=== PATIENT | female | born 1965 | race Caucasian/White ===

== ENCOUNTER 2023-02-02 17:14 | Emergency (ER) | payer OTHER ==
[2023-02-02 17:43] LABS: BASOPHILS % (AUTO) 0.5 %; EOSINOPHILS # (AUTO) 0.1 10^3/uL (0.0-0.7); EOSINOPHILS % (AUTO) 1.3 %; HCT - HEMATOCRIT 41.1 % (37.0-47.0); HGB - HEMOGLOBIN 13.1 g/dL (12.0-16.0); LYMPHOCYTES # (AUTO) 2.4 10^3/uL (1.5-3.5); LYMPHOCYTES % (AUTO) 31.5 %; MEAN CORPUSCULAR HGB CONC 31.9 g/dL (32.0-36.0); MEAN CORPUSCULAR VOLUME 90.9 fL (81.0-99.0); MEAN PLATELET VOLUME 9.5 fL (7.9-10.8); MONOCYTES # (AUTO) 0.4 10^3/uL (0.0-1.0); NEUTROPHILS # (AUTO) 4.6 10^3/uL (1.5-6.6); NEUTROPHILS % (AUTO) 61.6 %; PLT - PLATELET COUNT 250 10^3/uL (130-450); RED BLOOD COUNT 4.52 10^6/uL (4.20-5.40); RED CELL DISTRIBUTION WIDTH 12.8 % (12.0-15.0); WHITE BLOOD COUNT 7.6 x10^3/uL (4.8-10.8)
[2023-02-02 17:48] LABS: BILIRUBIN,URINE NEGATIVE (NEGATIVE); GLUCOSE, URINE (UA) NEGATIVE (NEGATIVE); KETONES,URINE (UA) NEGATIVE (NEGATIVE); LEUKOCYTE ESTERASE, URINE NEGATIVE (NEGATIVE); NITRITE,URINE NEGATIVE (NEGATIVE); OCCULT BLOOD,URINE NEGATIVE (NEGATIVE); PROTEIN,URINE NEGATIVE (NEGATIVE); UROBILINOGEN,URINE 0.2 (NORMAL) E.U./dL (NORMAL)
[2023-02-02 17:50] LABS: CLARITY,URINE CLEAR (CLEAR)
[2023-02-02 17:54] LABS: ALBUMIN 4.1 g/dL (3.2-5.5); ALBUMIN/GLOBULIN RATIO 1.1 (1.0-2.2); BILIRUBIN,TOTAL 0.4 mg/dL (0.2-1.0); CALCIUM 9.5 mg/dL (8.5-10.3); CREATININE 0.7 mg/dL (0.4-1.0); POTASSIUM 3.5 mmol/L (3.5-5.0); TOTAL PROTEIN 7.8 g/dL (6.7-8.2)
[2023-02-02] MEDS ORDERED: ONDANSETRON ODT 4 MG TABLET TL STA (18:04)
[2023-02-02] MEDS ORDERED: HYDROmorphone 1 MG/ML CARPUJECT IM STA (18:04)
--- NOTE | 2023-02-02 18:05 | ED Physician Documentation ---
PD HPI ABD PAIN - Stated complaint Stated Complaint: ABD PX - Chief complaint Chief Complaint: Abd Pain - History obtained from History obtained from: Patient - Additional information Additional information: 57-year-old woman with a remote history of appendicitis but no other abdominal surgeries presents with episodic right upper quadrant pain. She had it several times in November, seem to be after eating certain foods. During December she really did not have any pain but now she has had the pain since eating something spicy last night for about 24 hours. She tried Pepcid which was unhelpful. She is nauseous with it. No changes in bowel movements. No fevers. PD PAST MEDICAL HISTORY - Present Medications Home Medications: Ambulatory Orders Medication Instructions Recorded Confirmed Estrogens, Conjugated Cream 02/02/23 [Premarin Cream] Omeprazole 40 mg PO DAILY #30 cap 02/02/23 - Allergies Allergies/Adverse Reactions: Allergies Allergy/AdvReac Type Severity Reaction Status Date / Time No Known Drug Allergies Allergy Verified 02/02/23 17:25 PD ED PE NORMAL - Vitals Vital signs reviewed: Yes - General General: Alert and oriented X 3, No acute distress - Cardiac Cardiac: RRR, No murmur - Respiratory Respiratory: No respiratory distress, Clear bilaterally - Abdomen Abdomen: Normal bowel sounds, Soft, Other (She is focally tender in the right upper quadrant with positive Bee sign.) - Back Back: No CVA TTP, No spinal TTP - Derm Derm: Normal color, Warm and dry - Neuro Neuro: Alert and oriented X 3, Normal speech Results - Vitals Vitals: Vital Signs - 24 hr 02/02/23 17:22 Temperature 36.0 C L Heart Rate 88 Respiratory 16 Rate Blood Pressure 122/94 H O2 Saturation 100 Oxygen O2 Source Room air - Labs Labs: Laboratory Tests 02/02/23 02/02/23 02/02/23 17:35 17:37 17:37 WBC 7.6 RBC 4.52 Hgb 13.1 Hct 41.1 MCV 90.9 MCH 29.0 MCHC 31.9 L RDW 12.8 Plt Count 250 MPV 9.5 Neut # (Auto) 4.6 Lymph # (Auto) 2.4 Morrison # (Auto) 0.4 Eos # (Auto) 0.1 Baso # (Auto) 0.0 Absolute Nucleated RBC 0.00 Nucleated RBC % 0.0 Sodium 142 Potassium 3.5 Chloride 106 Carbon Dioxide 28 Anion Gap 8.0 BUN 14 Creatinine 0.7 Estimated GFR (MDRD) 87 L Glucose 123 H Calcium 9.5 Total Bilirubin 0.4 AST 22 ALT 21 Alkaline Phosphatase 70 Total Protein 7.8 Albumin 4.1 Globulin 3.7 Albumin/Globulin Ratio 1.1 Lipase 34 Urine Color YELLOW Urine Clarity CLEAR Urine pH 7.0 Ur Specific Blue 1.010 Urine Protein NEGATIVE Urine Glucose (UA) NEGATIVE Urine Ketones NEGATIVE Urine Occult Blood NEGATIVE Urine Nitrite NEGATIVE Urine Bilirubin NEGATIVE Urine Urobilinogen 0.2 (NORMAL) Ur Leukocyte Esterase NEGATIVE Ur Microscopic Review NOT INDICATED Urine Culture Comments NOT INDICATED - Rads (name of study) Right upper quadrant ultrasound showing possible fatty liver, no gallstones etc. Relevant Findings:: Final report received, EMP independent interpretation of test PD Medical Decision Making - ED course Complexity details: reviewed results (CBC reviewed and normal. CMP reviewed with mild hyperglycemia. Urinalysis reviewed and normal.) ED course: 57-year-old woman with right upper quadrant pain that is episodic and postprandial most likely biliary in origin. Feeling better after shot of Dilaudid. Ultrasound negative for gallstones etc. Probably gastritis by process of illumination. Departure - Departure Disposition: Home, Self Care Clinical Impression: Gastritis Qualifiers: Gastritis type: unspecified gastritis Chronicity: acute Gastritis bleeding: without bleeding Qualified Code(s): K29.00 - Acute gastritis without bleeding Condition: Good Record reviewed to determine appropriate education?: Yes Instructions: ED PUD Vs Gastritis Prescriptions: Omeprazole 40 mg PO DAILY #30 cap Comments: Your lab work and ultrasound today were unremarkable. Likely that you have gastritis. I am starting some medication for this. Call your doctor to arrange a follow-up appointment, make the next available appointment. In the interim, return anytime if worse or if new symptoms develop.
--- NOTE | 2023-02-02 19:14 | Ultrasound Report ---
PROCEDURE: Abdomen Limited INDICATIONS: Right upper quadrant pain TECHNIQUE: Real-time focused scanning was performed of the abdomen, with image documentation. COMPARISON: None FINDINGS: Mild increased echogenicity of the liver may indicate fatty change. Gallbladder is unremar kable without stones or wall thickening or pain on examination. No dilated bile ducts. Common bile duct measures 2.8 mm. Visualized portions of the pancreas are unremarkable. Normal size right kidney without hydronephrosis. IMPRESSION: 1. Question mild diffuse hepatic steatosis. 2. Unremarkable gallbladder. Reviewed by: Jose Luna MD on 02/02/2023 7:13 PM PST Approved by: Jose Luna MD on 02/02/2023 7:13 PM PST Station ID: [id number]
[2023-02-02] MEDS ORDERED: PANTOPRAZOLE 40 MG TABLET PO STA (19:27)
[2023-02-02] MEDS ORDERED: METOCLOPRAMIDE 10 MG TABLET PO STA (19:27)
[2023-02-02] MEDS ORDERED: HYDROcod/ACET 5/325 Prepack 4 PO STA (19:30)
[2023-02-02 19:47] VITALS: BP 129/65
== END 2023-02-02 19:47 | disposition home or self-care (01) ==
LOC: ED 17:14
DX: K29.00 Acute gastritis without bleeding (principal)
CPT/HCPCS: 36415; 76705; 80053; 81003; 83690; 85025; 96372; 99284; A9270; J1170; Q0162; 81001; 87086

== ENCOUNTER 2023-11-02 15:58 | Emergency (ER) | payer OTHER ==
[2023-11-02] MEDS ORDERED: DEXAMETHASONE 10 MG/ML VIAL PO STA (17:25)
[2023-11-02] MEDS ORDERED: CHERRY SYRUP 10 ML UDC PO ONE (17:25)
[2023-11-02 17:27] LABS: CORONAVIRUS 229E-RESP PCR NOT DETECTED; CORONAVIRUS HKU1-RESP PCR NOT DETECTED; CORONAVIRUS NL63-RESP PCR NOT DETECTED; CORONAVIRUS OC43-RESP PCR NOT DETECTED; HUMAN METAPNEUMOVIRUS NOT DETECTED; SARS-CoV-2 -RESP PCR PANEL NOT DETECTED
[2023-11-02 17:28] LABS: B. PARAPERTUSSIS- RESP PCR PAN NOT DETECTED; B. PERTUSSIS- RESP PCR PANEL NOT DETECTED; C. PNEUMONIAE- RESP PCR PANEL NOT DETECTED; INFLUENZA A- RESP PCR PANEL NOT DETECTED; INFLUENZA B - RESP PCR PANEL NOT DETECTED; M. PNEUMONIAE- RESP PCR PANEL NOT DETECTED; PARAINFLUENZA VIRUS 1 NOT DETECTED; PARAINFLUENZA VIRUS 2 NOT DETECTED; PARAINFLUENZA VIRUS 3 NOT DETECTED; PARAINFLUENZA VIRUS 4 NOT DETECTED; RHINOVIRUS/ENTEROVIRUS DETECTED; RSV- RESP PCR PANEL NOT DETECTED
--- NOTE | 2023-11-02 17:45 | ED Physician Documentation ---
PD HPI URI - Stated complaint Stated Complaint: COUGH/SORE THROAT - Chief complaint Chief Complaint: Resp - History obtained from History obtained from: Patient - History of Present Illness Timing - onset: How many days ago (2) Timing duration: Days (2) Timing details: Gradual onset, Still present Associated symptoms: Nasal congestion, Rhinorrhea, Sore throat, Productive cough Contributing factors: Sick contact ( sick with similar) Improves by: Rest Worsened by: Activity Similar symptoms before: Has not had sx before Recently seen: Not recently seen - Additional information Additional information: 58-year-old female with cough and congestion for 2 days has recently returned from the [facility] and her has become ill with cough and congestion prior to her. She does not usually get sick. Her usually will develop cough and congestion with travel and over doing it and he has a problem with recurrent otitis. She does not have this problem as she is sick as well. Review of Systems Constitutional: reports: Myalgias, Fatigue. denies: Fever Eyes: denies: Decreased vision Ears: reports: Ear pain Nose: reports: Rhinorrhea / runny nose, Congestion. denies: Sinus pressure / pain Throat: reports: Sore throat Cardiac: denies: Chest pain / pressure, Palpitations Respiratory: reports: Cough. denies: Dyspnea GI: denies: Nausea, Vomiting, Constipation, Diarrhea : denies: Dysuria, Frequency PD PAST MEDICAL HISTORY - Past Medical History Past Medical History: No - Past Surgical History Past Surgical History: No - Present Medications Home Medications: Ambulatory Orders Medication Instructions Recorded Confirmed Estrogens, Conjugated Cream 02/02/23 [Premarin Cream] Omeprazole 40 mg PO DAILY #30 cap 02/02/23 Benzonatate [Tessalon] 100 - 200 mg PO TID PRN #30 cap 11/02/23 - Allergies Allergies/Adverse Reactions: Allergies Allergy/AdvReac Type Severity Reaction Status Date / Time No Known Drug Allergies Allergy Verified 02/02/23 17:25 - Social History Does the pt smoke?: No Smoking Status: Never smoker PD ED PE NORMAL - Vitals Vital signs reviewed: Yes (Hypertensive) - General General: Alert and oriented X 3, No acute distress, Well developed/nourished - HEENT HEENT: Atraumatic, PERRL, EOMI, Ears normal, Moist mucous membranes, Other (There is generalized pharyngeal erythema and mild swelling.) - Neck Neck: Supple, no meningeal sign, No bony TTP - Cardiac Cardiac: RRR, No murmur - Respiratory Respiratory: No respiratory distress, Clear bilaterally - Abdomen Abdomen: Soft, Non tender - Back Back: No CVA TTP, No spinal TTP - Derm Derm: Normal color, Warm and dry, No rash - Extremities Extremities: No deformity, No edema - Neuro Neuro: Alert and oriented X 3, bill cutter 2-12 intact, No motor deficit, No sensory deficit, Normal speech Eye Opening: Spontaneous Motor: Obeys Commands Verbal: Oriented GCS Score: 15 - Psych Psych: Normal mood, Normal affect Results - Vitals Vitals: Vital Signs - 24 hr 11/02/23 16:25 Temperature 36.2 C L Heart Rate 89 Respiratory 16 Rate Blood Pressure 165/68 H O2 Saturation 96 Oxygen O2 Source Room air - Labs Labs: Laboratory Tests 11/02/23 16:30 Nasal Adenovirus (PCR) NOT DETECTED Nasal B. parapertussis DNA (PCR) NOT DETECTED Nasal Coronavir 229E PCR NOT DETECTED Nasal Coronavir HKU1 PCR NOT DETECTED Nasal Coronavir NL63 PCR NOT DETECTED Nasal Coronavir OC43 PCR NOT DETECTED Nasal Enterovir/Rhinovir PCR DETECTED A Nasal Influenza B PCR NOT DETECTED Nasal Influenza A PCR NOT DETECTED Nasal Parainfluen 1 PCR NOT DETECTED Nasal Parainfluen 2 PCR NOT DETECTED Nasal Parainfluen 3 PCR NOT DETECTED Nasal Parainfluen 4 PCR NOT DETECTED Nasal RSV (PCR) NOT DETECTED Nasal B.pertussis DNA PCR NOT DETECTED Nasal C.pneumoniae (PCR) NOT DETECTED Bowen Human Metapneumo PCR NOT DETECTED Nasal M.pneumoniae (PCR) NOT DETECTED Nasal SARS-CoV-2 (PCR) NOT DETECTED PD Medical Decision Making - ED course Complexity details: reviewed results, re-evaluated patient, considered differential, d/w patient, d/w family ED course: 58-year-old female with URI symptoms and recent travel has a swab positive for rhinovirus. I do not find other evidence of inflammation to trigger use of antibiotic given for clean up. Departure - Departure Disposition: 01 Home, Self Care Clinical Impression: Rhinovirus Upper respiratory tract infection Qualifiers: URI type: acute nasopharyngitis (common cold) Qualified Code(s): J00 - Acute nasopharyngitis [common cold] Condition: Stable Instructions: Cold Virus Follow-Up: [facility] [Provider Group] Prescriptions: Benzonatate [Tessalon] 100 - 200 mg PO TID PRN #30 cap PRN Reason: Cough Comments: Crisencia, today your nasal swab is positive for rhinovirus or the common cold. I do not find other evidence to suggest that a separate bacterial infection requiring treatment is present. This is different than what we found on your . Our expectations are complete recovery. The usually time for this is 7 to 10 days. I have E scribed some cough suppressant to the [facility] in [place]. I have also left you with a note for work for 4 days. Forms: Activity restrictions
[2023-11-02 18:09] VITALS: BP 140/82; O2SAT 100
== END 2023-11-02 18:06 | disposition home or self-care (01) ==
LOC: ED 15:58
DX: J06.9 Acute upper respiratory infection, unspecified (principal); B97.89 Other viral agents as the cause of diseases classified elsewhere
CPT/HCPCS: 87633; 99283; A9270

== ENCOUNTER 2023-11-19 08:28 | Emergency (ER) | payer OTHER ==
[2023-11-19 09:48] LABS: CORONAVIRUS 229E-RESP PCR NOT DETECTED; CORONAVIRUS HKU1-RESP PCR NOT DETECTED; CORONAVIRUS NL63-RESP PCR NOT DETECTED; CORONAVIRUS OC43-RESP PCR NOT DETECTED; HUMAN METAPNEUMOVIRUS NOT DETECTED; SARS-CoV-2 -RESP PCR PANEL NOT DETECTED
[2023-11-19 09:49] LABS: B. PARAPERTUSSIS- RESP PCR PAN NOT DETECTED; B. PERTUSSIS- RESP PCR PANEL NOT DETECTED; C. PNEUMONIAE- RESP PCR PANEL NOT DETECTED; INFLUENZA A- RESP PCR PANEL NOT DETECTED; INFLUENZA B - RESP PCR PANEL NOT DETECTED; M. PNEUMONIAE- RESP PCR PANEL NOT DETECTED; PARAINFLUENZA VIRUS 1 NOT DETECTED; PARAINFLUENZA VIRUS 2 NOT DETECTED; PARAINFLUENZA VIRUS 3 NOT DETECTED; PARAINFLUENZA VIRUS 4 NOT DETECTED; RHINOVIRUS/ENTEROVIRUS NOT DETECTED; RSV- RESP PCR PANEL NOT DETECTED
[2023-11-19] MEDS ORDERED: KETOROLAC 60 MG/2 ML VIAL IM STA (09:57)
--- NOTE | 2023-11-19 09:58 | ED Physician Documentation ---
History of Present Illness - Stated complaint Stated Complaint: FEVER,BODY ACHE - Chief complaint Chief Complaint: General - Additonal information Additional information: Patient 58-year-old female presenting to the emergency department with chief complaints cough, congestion, body ache, headache. Multiple family members with similar symptoms. Denies fever. Her primary complaint is generalized body ache. No shortness of breath. Reports immunized for COVID and influenza. Review of Systems Constitutional: reports: Myalgias Eyes: denies: Loss of vision Ears: denies: Loss of hearing Nose: reports: Rhinorrhea / runny nose, Congestion Respiratory: reports: Cough GI: denies: Abdominal Pain, Nausea, Vomiting, Constipation : denies: Dysuria Skin: denies: Rash PD PAST MEDICAL HISTORY - Past Surgical History Past Surgical History: No - Present Medications Home Medications: Ambulatory Orders Medication Instructions Recorded Confirmed Estrogens, Conjugated Cream 02/02/23 [Premarin Cream] Omeprazole 40 mg PO DAILY #30 cap 02/02/23 Benzonatate [Tessalon] 100 - 200 mg PO TID PRN #30 cap 11/02/23 Ketorolac [Toradol] 10 mg PO Q6H #30 tablet 11/19/23 - Allergies Allergies/Adverse Reactions: Allergies Allergy/AdvReac Type Severity Reaction Status Date / Time No Known Drug Allergies Allergy Verified 02/02/23 17:25 - Social History Does the pt smoke?: No Smoking Status: Never smoker PD ED PE NORMAL - Vitals Vital signs reviewed: Yes (wnl) - General General: Alert and oriented X 3 - HEENT HEENT: Atraumatic, PERRL - Neck Neck: Supple, no meningeal sign - Cardiac Cardiac: RRR - Respiratory Respiratory: No respiratory distress - Abdomen Abdomen: Normal bowel sounds - Female Female : Deferred - Rectal Rectal: Deferred - Derm Derm: Normal color - Extremities Extremities: No deformity Results - Vitals Vitals: Vital Signs - 24 hr 11/19/23 08:34 Temperature 36.7 C Heart Rate 96 Respiratory 18 Rate Blood Pressure 124/89 H O2 Saturation 99 Oxygen O2 Source Room air - Labs Labs: Laboratory Tests 11/19/23 08:39 Nasal Adenovirus (PCR) NOT DETECTED Nasal B. parapertussis DNA (PCR) NOT DETECTED Nasal Coronavir 229E PCR NOT DETECTED Nasal Coronavir HKU1 PCR NOT DETECTED Nasal Coronavir NL63 PCR NOT DETECTED Nasal Coronavir OC43 PCR NOT DETECTED Nasal Enterovir/Rhinovir PCR NOT DETECTED Nasal Influenza B PCR NOT DETECTED Nasal Influenza A PCR NOT DETECTED Nasal Parainfluen 1 PCR NOT DETECTED Nasal Parainfluen 2 PCR NOT DETECTED Nasal Parainfluen 3 PCR NOT DETECTED Nasal Parainfluen 4 PCR NOT DETECTED Nasal RSV (PCR) NOT DETECTED Nasal B.pertussis DNA PCR NOT DETECTED Nasal C.pneumoniae (PCR) NOT DETECTED Bowen Human Metapneumo PCR NOT DETECTED Nasal M.pneumoniae (PCR) NOT DETECTED Nasal SARS-CoV-2 (PCR) NOT DETECTED PD Medical Decision Making - ED course Complexity details: reviewed results, d/w patient, d/w family ED course: Patient 58-year-old female presenting with cough, congestion, headache, body ache. Afebrile, hematin stable on arrival to the emergency department. No nuchal rigidity. Patient otherwise mentating well with a nonfocal nonlateralizing neurologic exam. Cardiac and HEENT exam benign. Clear aeration in all lung gastelum. Respiratory viral panel negative however most likely etiology for patient's symptoms is acute viral illness given that she has known sick contacts were having similar symptoms. Lab work is considered however do not believe there is any indication for it at this time. Will treat with a dose of Toradol here in the emergency department and discharged with oral Toradol. Will encourage use [id number] antitussives. Will encourage careful follow-up with primary care. Clear return precautions given prior to discharge. Departure - Departure Disposition: 01 Home, Self Care Clinical Impression: Viral illness, Myalgia Instructions: ED Viral Syndrome Prescriptions: Ketorolac [Toradol] 10 mg PO Q6H #30 tablet Comments: Thank you for allowing us to care for you today [facility]. Today in the emergency department you are diagnosed with an acute viral illness. Your COVID and influenza swab was negative which is reassuring however your symptoms are most consistent with acute viral illness with body ache and myalgia. You are given a dose of Toradol here in the emergency department. I will be writing her prescription for oral Toradol To help with any ongoing pain. Please use this as directed. Please follow-up with your primary care doctor soon as possible. In the meantime I recommend drinking plenty of fluids and getting plenty of rest. If anytime you develop any new or worsening symptoms please not hesitate to return.
[2023-11-19 10:16] VITALS: BP 122/88; O2SAT 98
== END 2023-11-19 10:13 | disposition home or self-care (01) ==
LOC: ED 08:28
DX: B34.9 Viral infection, unspecified (principal)
CPT/HCPCS: 87633; 96372; 99283